=== PATIENT | male | born 1970 | race Two or more races ===

== ENCOUNTER 2020-11-10 11:48 | Emergency (ER) | payer OTHER ==
[~2020-11-10] VITALS: Ht 157.5 cm; Wt 81.8 kg
[2020-11-10] MEDS ORDERED: PROPARACAINE HCL 0.5% 15 ML OPHTHALMIC SOLUTION OD ONE (14:30)
[2020-11-10] MEDS ORDERED: FLUORESCEIN SODIUM 1 MG STRIP ONE (14:36)
[2020-11-10 14:58] VITALS: BP 148/100
[2020-11-10] MEDS ORDERED: NEOMYCIN/POLYMYXIN B/GRAMICIDIN 10 ML OPHTHALMIC SOLUTION OD ONE (15:30)
== END 2020-11-10 15:45 | disposition home or self-care (01) ==
LOC: EMS 11:48
DX: S05.01XA Injury of conjunctiva and corneal abrasion without foreign body, right eye, initial encounter (principal); H11.001 Unspecified pterygium of right eye; E78.00 Pure hypercholesterolemia, unspecified; I10 Essential (primary) hypertension; X58.XXXA Exposure to other specified factors, initial encounter; Y93.89 Activity, other specified; Y92.89 Other specified places as the place of occurrence of the external cause; Y99.8 Other external cause status